=== PATIENT | female | born 1990 | race Hispanic/Latino ===

== ENCOUNTER 2018-01-31 05:48 | Inpatient (IN) | payer BC ==
[2018-01-31] MEDS ORDERED: METHYLERGONOVINE 0.2MG/ML AMP IM PRN (07:35)
[2018-01-31] MEDS ORDERED: BUTORPHANOL 1 MG/ML INJ IV PRN (07:35)
[2018-01-31] MEDS ORDERED: PROMETHAZINE 25 MG/ML VIAL IM PRN (07:35)
[2018-01-31] MEDS ORDERED: MEPERIDINE HCL 25 MG/0.5 ML IV PRN (07:35)
[2018-01-31] MEDS ORDERED: Ringers Lactate 1,000 ML IV PRN (07:35)
[2018-01-31] MEDS ORDERED: MIDAZOLAM HCL 2 MG/2 ML INJ IV PRN (07:35)
[2018-01-31 07:56] LABS: RPR Titer ND
[2018-01-31 07:57] VITALS: BMI 33.7
[2018-01-31 08:00] LABS: Urine Appearance TURBID; Urine Bilirubin NEGATIVE (NEG); Urine Blood 2+ (NEG); Urine Color YELLOW; Urine Glucose NEGATIVE (NEG); Urine Protein NEGATIVE (NEG); Urine Urobilinogen 0.2 mg/dL (0.2-1.0)
[2018-01-31] MEDS ORDERED: OXYTOCIN/LR 20 UNIT/1,000 ML BAG IV SCH (08:00)
[2018-01-31] MEDS ORDERED: Ringers Lactate 1,000 ML IV SCH (08:00)
[2018-01-31 08:01] LABS: Absolute Lymphocytes (CBC) 1.5 K/uL (0.7-4.9); Absolute Monocytes 0.8 K/uL (0.1-1.3); Absolute Neutrophil 11.4 K/uL (1.8-8.0); Basophils % 0.2 % (0-1.3); Eosinophils % 0.2 % (0-4.4); Hematocrit 37.4 % (36.0-45.0); MCH 30.9 pg (27.0-35.0); MCV 89.4 fL (80-100); MPV 9.5 fL (7.6-11.3); Monocytes % 5.9 % (3.3-12.3); RBC Red Blood Cell Count 4.19 M/uL (3.86-4.86)
[2018-01-31 08:17] LABS: Urine Microscopic Reflex ORDER UMIC
[2018-01-31 08:37] LABS: Urine Bacteria >50 /HPF (<20); Urine Culture Reflex Order NOT NEEDED
[2018-01-31] MEDS ORDERED: LIDOCAINE 2% INJ, 20 mL 20 ML ONE (10:46)
[2018-01-31] MEDS ORDERED: DOCUSATE NA/SENNA CONC 1 TAB PO PRN (11:24)
[2018-01-31] MEDS ORDERED: ACETAMINOPHEN 500 MG TAB PO PRN (11:24)
[2018-01-31] MEDS ORDERED: DIPHENHYDRAMINE 25 MG TAB/CAP PO PRN (11:24)
[2018-01-31] MEDS ORDERED: BISACODYL 10 MG RECTAL SUPP RECT PRN (11:24)
[2018-01-31] MEDS ORDERED: Oxycodone HCl/Acetaminophen 1 TAB TAB PO PRN ×2 (11:24)
[2018-01-31] MEDS ORDERED: Rho(D) IG (HUMAN) 300 MCG SYR IM PRN (11:41)
[2018-01-31] MEDS ORDERED: OXYTOCIN/LR 1,000 ML IV SCH (12:00)
--- NOTE | 2018-01-31 13:32 | PREOPHP ---
Date of Admission: 01/31/2018 A 27-year-old, primigravida, 39 weeks, has come in for the last 2 days with irregular contractions, c tripp in today in active labor, 3 cm, 70% effaced, vertex, -1 station, rupture of membranes, clear flui d. The patient has had 1 mg of Stadol. Beta strep is negative. She is Rh negative and has had RhoG AM during the . Labor talk given. Anticipate more rapid progress once the patient reaches 5 cm. She is having back discomfort, so I think the baby is probably occiput posterior, although, I cannot tell at this time. Pelvic rocks encouraged. WINNIE/WANDY Voice ID: [id number]
[2018-01-31] MEDS: IBUPROFEN 200 MG TAB PO PRN (14:26)
--- NOTE | 2018-01-31 16:14 | PN ---
The patient went from approximately 3 to 4 cm to complete, is now began to pushing, baby is in the pe rfect position. If she pushes well, it should not take as too much longer. She is on only 1 dose of Stadol during the labor. Doing well at this point with breathing techniques and encouragement from her family. WINNIE/WANDY Voice ID: [id number] Report ID: [id number]
[2018-01-31 19:18] LABS: RPR (Rapid Plasma Reagin) NON-REACT (NON-REACT)
--- NOTE | 2018-01-31 23:01 | OP ---
Surgeon: Antwan Gottlieb MD Indication And Procedure: A 27-year-old, primigravida, 39 weeks' gestation, had been seen previous 2 days with prodromal labor, came in today in active labor; 3 cm, 70% effaced, gregg every 2-3 m inutes; Rh negative, has received RhoGAM during the , immune to Rubella, negative beta strep screen. Rupture of membranes at 3 cm. Light Pitocin augmentation. The patient progressed rapidly to complete, used only 1 mg of Stadol, otherwise, Lamaze breathing techniques to best advantage. Sec ond stage of 20-30 minute, spontaneous vaginal delivery of an estimated 7 pounds, male , Apgars 9 and 9. First-degree laceration on the left side of the introitus, sutured with 2-0 chromic runnin g locked stitch under local infiltration. Wilkinson delivery of the placenta, which was inspected and noted to be intact and normal, less than 300 cc blood loss. The patient tolerated all procedures wel l. Final Diagnoses: Term intrauterine , 39 weeks; vaginal delivery, Rh negative, RhoGAM castro ZHOU/WANDY Voice ID: [id number] Report ID: [id number]
[2018-02-01] MEDS: IBUPROFEN 200 MG TAB PO PRN (00:59)
[2018-02-01 12:32] VITALS: BP 123/75; TEMP 96
--- NOTE | 2018-02-02 05:24 | DS ---
Date of Discharge: 02/01/2018 Hospital Course: A 27-year-old primigravida, at 39 weeks. Came in active labor. Subsequently aria ered an estimated 7 pounds male , Apgars 9 and 9, first-degree laceration repaired with 2-0 chr omic. Schultze delivery of the placenta. Estimated blood loss less than 300 cc. Placenta intact. Rh negative. Has received RhoGAM during the and has received RhoGAM in the courtney od. She has also had her Tdap shot already. No complaints or problems this morning. Full dismissal instructions. We will let her go home with tramadol, although she may take Motrin instead. Final Diagnoses: 1.Term intrauterine 39 weeks. 2.Vaginal delivery. 3.RhoGAM given, Tdap has been administered during the . WINNIE/WANDY Voice ID: [id number] Report ID: [id number]
[2018-02-03 04:14] LABS: HBsAG Nonreactive (Nonreactive)
== END 2018-02-01 13:50 | disposition home or self-care (01) | DRG 775 ==
LOC: L&D 05:48 → 2ND-WC 07:35
PROVIDERS: ADMIT Specialist; ATTEND Specialist
PROC: 10E0XZZ Delivery of Products of Conception, External Approach (ICD-10-PCS; principal; 2018-01-31)
PROC: 0HQ9XZZ Repair Perineum Skin, External Approach (ICD-10-PCS; 2018-01-31)
PROC: 10907ZC Drainage of Amniotic Fluid, Therapeutic from Products of Conception, Via Natural or Artificial Opening (ICD-10-PCS; 2018-01-31)
PROC: 3E0234Z Introduction of Serum, Toxoid and Vaccine into Muscle, Percutaneous Approach (ICD-10-PCS; 2018-01-31)
DX: O70.0 First degree perineal laceration during delivery (principal); O26.893 Other specified pregnancy related conditions, third trimester; Z3A.39 39 weeks gestation of pregnancy; Z37.0 Single live birth; Z67.41 Type O blood, Rh negative
CPT/HCPCS: 36415; 81003; 81015; 85025; 85461; 86592; 86850; 86901; 87340; 99218; J0595; J2175; J2210; J2550; J2590; J2790

== ENCOUNTER 2018-02-02 17:20 | Emergency (ER) | payer BC ==
[2018-02-02] MEDS ORDERED: NA CHLORIDE 0.9% 1,000 ML ONE (18:00)
[2018-02-02 18:10] LABS: Absolute Lymphocytes (CBC) 1.3 K/uL (0.7-4.9); Absolute Monocytes 0.8 K/uL (0.1-1.3); Absolute Neutrophil 10.2 K/uL (1.8-8.0); Basophils % 1.5 % (0-1.3); Eosinophils % 0.6 % (0-4.4); Hematocrit 32.2 % (36.0-45.0); Lymphocytes % 10.6 % (15.3-44.8); MCH 30.9 pg (27.0-35.0); MCV 91.3 fL (80-100); MPV 9.3 fL (7.6-11.3); Monocytes % 6.1 % (3.3-12.3); RBC Red Blood Cell Count 3.53 M/uL (3.86-4.86)
[2018-02-02 18:13] LABS: Potassium 3.7 mmol/L (3.5-5.1)
--- NOTE | 2018-02-02 19:10 | RAD REPORT ---
EXAM DESCRIPTION: CT - Head Brain Wo Cont - 02/02/2018 7:03 pm CLINICAL HISTORY: DIZZINESS Drowsiness COMPARISON: No comparisons TECHNIQUE: All CT scans are performed using dose optimization technique as appropriate and may inclu de automated exposure control or mA/KV adjustment according to patient size. FINDINGS: No intracranial hemorrhage, hydrocephalus or extra-axial fluid collection.No areas of brai n edema or evidence of midline shift. The paranasal sinuses and mastoids are clear. The calvarium is intact. IMPRESSION: No acute intracranial abnormality.
--- NOTE | 2018-02-02 19:44 | ER ---
Nurse's Notes [facility] Name: Gemini Gustafson Age: 27 yrs Sex: Female : 1990 Arrival Date: 02/02/2018 Time: 17:[address] Private MD: Diagnosis: mood disturbance;Sleep deprivation Presentation: 02/02 17:35 Presenting complaint: states: Shes just been randomly crying, and not acting sg normal. Today she said she didn't feel good, and hasnt been able to sleep because we have a new baby. Transition of care: patient was not received from another setting of care. Onset of symptoms was February 02, 2018. Risk Assessment: Do you want to hurt yourself or someone else? Patient reports no desire to harm self or others. Initial Sepsis Screen: Does the patient meet any 2 criteria? No. Patient's initial sepsis screen is negative. Does the patient have a suspected source of infection? No. Patient's initial sepsis screen is negative. Care prior to arrival: None. 17:35 Method Of Arrival: Ambulatory sg 17:35 Acuity: BEBE 3 sg 17:41 Presenting complaint: pt is sitting in wheel chair in lobby, tearful, then lays her ch head back in the wheel chair, arms and legs tremble equally, then pt sits up and looks around. pt does thsi several times. states she has been acting "off" for an hour. pt gave 01/31/18. Triage Assessment: 17:40 General: Appears in no apparent distress. uncomfortable, Behavior is uncooperative, pt ch is sitting in chair in lobby, shaking arms and legs, eyes rolling back in her head. pt will not talk. FLUE GAS ANALYST: 17:36 LMP N/A - Recent sg Historical: - Allergies: 17:40 No Known Allergies; ch - Home Meds: 17:40 None [Active]; ch - PMHx: 17:40 None; ch - PSHx: 17:40 None; ch - Immunization history:: Adult Immunizations up to date. - Social history:: Smoking status: Patient/guardian denies using tobacco. - Ebola Screening: : Patient negative for fever greater than or equal to 101.5 degrees Fahrenheit, and additional compatible Ebola Virus Disease symptoms Patient denies exposure to infectious person Patient denies travel to an Ebola-affected area in the 21 days before illness onset No symptoms or risks identified at this time. Screenin:30 Abuse screen: Denies threats or abuse. Denies injuries from another. Nutritional sg screening: No deficits noted. Tuberculosis screening: No symptoms or risk factors identified. Never had TB. Fall Risk None identified. Assessment: 17:30 General: Appears in no apparent distress. well groomed, well developed, well nourished, sg Behavior is cooperative, quiet. General: Behavior is crying. Pain: Denies pain. Neuro: Level of Consciousness is awake, alert, obeys commands, Oriented to person, place, time, Speech is normal, Facial symmetry appears normal. Cardiovascular: Heart tones S1 S2 present Capillary refill is sluggish in bilateral fingers Patient's skin is warm and dry. Chest pain is denied. Respiratory: Airway is patent Respiratory effort is even, unlabored, Respiratory pattern is regular, symmetrical. GI: No signs and/or symptoms were reported involving the gastrointestinal system. GI: Reports constipation, since four days. : Reports vaginal bleeding that is bright red, light flow, spotty, Denies pain urinary frequency, urgency. EENT: No signs and/or symptoms were reported regarding the EENT system. Derm: Skin is intact, is healthy with good turgor, Skin is dry, Skin is pale, Skin temperature is cool. Musculoskeletal: Circulation, motion, and sensation intact. Range of motion: intact in all extremities, Swelling absent Reports weakness in right leg and left leg. 18:41 Reassessment: Patient appears in no apparent distress at this time. Patient is alert, sg oriented x 3, equal unlabored respirations, skin warm/dry/pink. pt no longer crying, but reports feeling sad. pt aa\\T\\ox3 at this time, slow to respond, awaiting CT scan. Vital Signs: 17:36 BP 147 / 98; Pulse 81; Resp 19 S; Temp 97.9; Pulse Ox 99% on R/A; Pain 0/10; sg ED Course: 17:22 Patient arrived in ED. sb2 17:23 Viral Hernandez PA is PHCP. jr8 17:23 Santiago Alvarado MD is Attending Physician. jr8 17:31 Inserted saline lock: 20 gauge in left antecubital area, using aseptic technique. Blood aj collected. 17:35 Patient has correct armband on for positive identification. Placed in gown. Bed in low sg position. Side rails up X2. attractions associate on. Pulse ox on. NIBP on. Warm blanket given. Head of bed elevated. 17:36 Triage completed. sg 17:36 Arm band placed on. sg 17:40 Patient placed in an exam room, on a stretcher. 17:52 Justino Martinez, RN is Primary Nurse. sg 18:03 EKG done, by scheme technician. reviewed by Viral LAWSON. 3 18:30 No provider procedures requiring assistance completed. sg 18:[address] cw1 19:03 CT Head Brain wo Cont In Process Unspecified. EDMS 19:03 CT completed. Patient tolerated procedure well. Patient moved back from CT. jg6 19:56 IV discontinued, intact, bleeding controlled, No redness/swelling at site. Pressure ak1 dressing applied. Administered Medications: 18:00 Drug: NS 0.9% 1000 ml Route: IV; Rate: 1000 ml; Site: left antecubital; sg 19:47 Follow up: IV Status: Completed infusion ak1 Point of Care Testing: Blood Glucose: 17:40 Blood Glucose: 99 mg/dL; sg Ranges: Outcome: 19:44 Discharge ordered by . jrDamaris 19:47 Discharged to home ambulatory, with family. ak1 19:47 Condition: stable 19:56 Discharge instructions given to patient, family, Instructed on discharge instructions, ak1 follow up and referral plans. Demonstrated understanding of instructions, follow-up care. 19:57 Patient left the ED. ak1 Signatures: Dispatcher [employer] EDFlores Powers, RN Justino Velasquez ch, RN Jyothi Jacobs RN Afsaneh Sharpe cw1 Viral Hernandez PA PA jrKetty Umana RN RN Erinn Frederick Shakira 3 Ro Romero j6
--- NOTE | 2018-02-02 19:44 | EDPHYS ---
Physician Documentation [facility] Name: Gemini Gustafson Age: 27 yrs Sex: Female : 1990 Arrival Date: 02/02/2018 Time: 17:[address] Private MD: ED Physician Santiago Alvarado HPI: 02/02 18:30 This 27 yrs old Female presents to ER via Ambulatory with complaints of jr8 Weakness. 18:30 Patient stated that she has hardly slept in the past day or so. Stated that she jr8 delivered her child two days ago. Stated that the child has been fine but that she cannot sleep because she is worried about him. Stated that she wakes up and checks on him about 15-20 times a night. stated that she randomly cries and is now feeling week . Severity of symptoms: At their worst the symptoms were moderate in the emergency department the symptoms are unchanged. The patient has not experienced similar symptoms in the past. The patient has not recently seen a physician. HEAD BONE GRINDER: 17:36 LMP N/A - Recent sg Historical: - Allergies: 17:40 No Known Allergies; ch - Home Meds: 17:40 None [Active]; ch - PMHx: 17:40 None; ch - PSHx: 17:40 None; ch - Immunization history:: Adult Immunizations up to date. - Social history:: Smoking status: Patient/guardian denies using tobacco. - Ebola Screening: : Patient negative for fever greater than or equal to 101.5 degrees Fahrenheit, and additional compatible Ebola Virus Disease symptoms Patient denies exposure to infectious person Patient denies travel to an Ebola-affected area in the 21 days before illness onset No symptoms or risks identified at this time. ROS: 18:30 Eyes: Negative for injury, pain, redness, and discharge, ENT: Negative for injury, jr8 pain, and discharge, Neck: Negative for injury, pain, and swelling, Cardiovascular: Negative for chest pain, palpitations, and edema, Respiratory: Negative for shortness of breath, cough, wheezing, and pleuritic chest pain, Abdomen/GI: Negative for abdominal pain, nausea, vomiting, diarrhea, and constipation, Back: Negative for injury and pain, MS/Extremity: Negative for injury and deformity, Skin: Negative for injury, rash, and discoloration. 18:30 Neuro: Negative for headache, weakness, numbness, tingling, and seizure. 18:30 Constitutional: Positive for fatigue, malaise. Exam: 18:30 Eyes: Pupils equal round and reactive to light, extra-ocular motions intact. Lids and jr8 lashes normal. Conjunctiva and sclera are non-icteric and not injected. Cornea within normal limits. Periorbital areas with no swelling, redness, or edema. ENT: Nares patent. No nasal discharge, no septal abnormalities noted. Tympanic membranes are normal and external auditory canals are clear. Oropharynx with no redness, swelling, or masses, exudates, or evidence of obstruction, uvula midline. Mucous membranes moist. Neck: Trachea midline, no thyromegaly or masses palpated, and no cervical lymphadenopathy. Supple, full range of motion without nuchal rigidity, or vertebral point tenderness. No Meningismus. Cardiovascular: Regular rate and rhythm with a normal S1 and S2. No gallops, murmurs, or rubs. Normal PMI, no JVD. No pulse deficits. Respiratory: Lungs have equal breath sounds bilaterally, clear to auscultation and percussion. No rales, rhonchi or wheezes noted. No increased work of breathing, no retractions or nasal flaring. Abdomen/GI: Soft, non-tender, with normal bowel sounds. No distension or tympany. No guarding or rebound. No evidence of tenderness throughout. Back: No spinal tenderness. No costovertebral tenderness. Full range of motion. Skin: Warm, dry with normal turgor. Normal color with no rashes, no lesions, and no evidence of cellulitis. MS/ Extremity: Pulses equal, no cyanosis. Neurovascular intact. Full, normal range of motion. Neuro: Awake and alert, GCS 15, oriented to person, place, time, and situation. Cranial nerves II-XII grossly intact. Motor strength 5/5 in all extremities. Sensory grossly intact. Cerebellar exam normal. Normal gait. 18:30 Constitutional: The patient appears alert, awake, anxious, restless. 19:43 ECG was reviewed by the Attending Physician. jr8 Vital Signs: 17:36 BP 147 / 98; Pulse 81; Resp 19 S; Temp 97.9; Pulse Ox 99% on R/A; Pain 0/10; sg MDM: 17:23 Patient medically screened. jr8 19:42 Data reviewed: vital signs, nurses notes, lab test result(s), EKG, radiologic studies, jr8 CT scan, and as a result, I will discharge patient. Data interpreted: Pulse oximetry: on room air is 99 %. Interpretation: normal. Counseling: I had a detailed discussion with the patient and/or guardian regarding: the historical points, exam findings, and any diagnostic results supporting the discharge/admit diagnosis, lab results, radiology results, the need for outpatient follow up, an OB/Gyne specialist, to return to the emergency department if symptoms worsen or persist or if there are any questions or concerns that arise at home. Response to treatment: the patient's symptoms have markedly improved after treatment, patient is well hydrated. 02/02 17:23 Order name: CBC with Diff; Complete Time: 18:30 8 02/02 17:23 Order name: Basic Metabolic Panel; Complete Time: 18:13 8 02/02 17:34 Order name: Magnesium; Complete Time: 18:13 [facility] 02/02 18:38 Order name: CT Head Brain wo Cont; Complete Time: 19:28 8 02/02 17:23 Order name: IV - Large Bore; Complete Time: 17:41 8 02/02 17:35 Order name: EKG - Nurse/Tech; Complete Time: 18:13 8 02/02 17:35 Order name: EKG; Complete Time: 17:35 jr8 EC:43 Rate is 75 beats/min. Rhythm is regular, Normal Sinus Rhythm. QRS [place] is Normal. [place] jr8 interval is normal at 130 msec. QRS interval is normal at 78 msec. QT interval is normal at 431 msec. No Q waves. T waves are Normal. No ST changes noted. Clinical impression: Normal ECG. Interpreted by me. Reviewed by me. Administered Medications: 18:00 Drug: NS 0.9% 1000 ml Route: IV; Rate: 1000 ml; Site: left antecubital; sg 19:47 Follow up: IV Status: Completed infusion ak1 Point of Care Testing: Blood Glucose: 17:40 Blood Glucose: 99 mg/dL; sg Ranges: Critical Glucose Levels:Adult <50 mg/dl or >400 mg/dl <40 mg/dl or >180 mg/dl Disposition: 02/03 06:31 Co-signature as Attending Physician, Santiago Alvarado MD I agree with the assessment and deniz plan of care. Disposition: 02/02/18 19:44 Discharged to Home. Impression: mood disturbance, Sleep deprivation. - Condition is Stable. - Discharge Instructions: Depression and Baby Blues. - Medication Reconciliation Form, Thank You Letter, Antibiotic Education, Prescription Opioid Use form. - Follow up: Private Physician; When: 1 - 2 days; Reason: Recheck today's complaints, Continuance of care, Re-evaluation by your physician. - Problem is new. - Symptoms have improved. Signatures: Dispatcher [employer] [facility] Flores Woo, RN RN Justino Kelley RN RN Santiago Flores MD MD cha Roszak, Josh, PA LULU jr8 Ketty Olsen RN RN ak1 Corrections: (The following items were deleted from the chart) 02/02 18:40 17:24 TYPE AND SCREEN+[id number].LAB.BRZ ordered. [facility] 19:57 19:44 02/02/2018 19:44 Discharged to Home. Impression: mood disturbance; ak1 Sleep deprivation. Condition is Stable. Forms are Medication Reconciliation Form, Thank You Letter, Antibiotic Education, Prescription Opioid Use. Follow up: Private Physician; When: 1 - 2 days; Reason: Recheck today's complaints, Continuance of care, Re-evaluation by your physician. Problem is new. Symptoms have improved. jr8
[2018-02-02 20:08] VITALS: BP 147/98; TEMP 97.9; O2SAT 99
--- NOTE | 2018-02-03 16:19 | EKG ---
Test Date: 2018-02-02 Test Time: 17:43:35 Plant Packer: GERTRUDE MEASUREMENT RESULTS: Intervals: Rate: 75 WA: 130 QRSD: 78 QT: 386 QTc: 431 [place]: P: 41 WA: 130 QRS: 12 T: 4 INTERPRETIVE STATEMENTS: Normal sinus rhythm Normal ECG Compared to ECG 11/05/2016 20:10:22 No significant changes Electronically Signed On 02-03-18 16:14:50 CDT by Chris Bautista
== END 2018-02-02 19:57 | disposition home or self-care (01) ==
LOC: ER 17:20
DX: O90.6 Postpartum mood disturbance (principal); Z72.820 Sleep deprivation
CPT/HCPCS: 36415; 70450; 80048; 82962; 83735; 85025; 93005; 96360; 96361; 99285; J7030

== ENCOUNTER 2018-07-02 16:10 | Emergency (ER) | payer BC ==
[2018-07-02] MEDS ORDERED: ONDANSETRON 4 MG (ODT) TAB ONE (16:37)
[2018-07-02] MEDS ORDERED: ACETAMINOPHEN 500 MG TAB ONE (16:37)
--- NOTE | 2018-07-02 17:42 | ER ---
Nurse's Notes [facility] Name: Gemini Gustafson Age: 28 yrs Sex: Female : 1990 Arrival Date: 07/02/2018 Time: 16:13 Bed 23 Private MD: Antwan Gottlieb B Diagnosis: Influenza due to identified novel influenza A virus with other respiratory manifestations Presentation: 07/02 16:14 Presenting complaint: Patient states: bilateral temporal and occipital headache started sv 3 days ago, SOB, sore throat. Seen by her PCP and sent home with prescriptions. Transition of care: patient was not received from another setting of care. Onset of symptoms was June 2018. Care prior to arrival: None. 16:14 Method Of Arrival: Ambulatory sv 16:14 Acuity: BEBE 3 sv 16:19 Note Pt reported being 11 weeks . sv 16:33 Risk Assessment: Do you want to hurt yourself or someone else? Patient reports no mg2 desire to harm self or others. Initial Sepsis Screen: Does the patient meet any 2 criteria? No. Patient's initial sepsis screen is negative. Does the patient have a suspected source of infection? No. Patient's initial sepsis screen is negative. Triage Assessment: 16:32 Headache History: The patient has had previous headaches and this one is similar to mg2 previous episodes. General: Appears in no apparent distress. comfortable, Behavior is calm, cooperative. Pain: Also complains of no other associated symptoms. Pain: Complains of pain in head and throat. CHECK GRADER: 17:54 LMP unknown mg2 Historical: - Allergies: 16:17 No Known Allergies; sv - PMHx: 16:17 None; sv - PSHx: 16:17 None; sv - Immunization history:: Adult Immunizations up to date. - Social history:: Smoking status: Patient/guardian denies using tobacco. - Ebola Screening: : No symptoms or risks identified at this time. Screenin:31 Abuse screen: Denies threats or abuse. Denies injuries from another. Nutritional mg2 screening: No deficits noted. Tuberculosis screening: No symptoms or risk factors identified. Fall Risk None identified. Assessment: 16:30 General: Appears in no apparent distress. comfortable, Behavior is calm, cooperative. mg2 Pain: Complains of pain in head and throat Pain does not radiate. Pain currently is 4 out of 10 on a pain scale. Quality of pain is described as aching, Pain began gradually, Is intermittent. Neuro: Level of Consciousness is awake, alert, obeys commands, Oriented to person, place, time, situation. Cardiovascular: Capillary refill < 3 seconds Patient's skin is warm and dry. Respiratory: Reports cough that is productive, runny nose Airway is patent Respiratory effort is even, unlabored, Respiratory pattern is regular, symmetrical. GI: Reports vomiting. : No signs and/or symptoms were reported regarding the genitourinary system. EENT: No signs and/or symptoms were reported regarding the EENT system. EENT: Reports pain in throat. Derm: Skin is intact, is healthy with good turgor, Skin is pink, warm \T\ dry. normal. Musculoskeletal: Circulation, motion, and sensation intact. Capillary refill < 3 seconds. 17:35 Reassessment: Patient appears in no apparent distress at this time. Patient and/or mg2 family updated on plan of care and expected duration. Pain level reassessed. Patient is alert, oriented x 3, equal unlabored respirations, skin warm/dry/pink. Vital Signs: 16:17 BP 121 / 93; Pulse 116; Resp 22; Temp 100; Pulse Ox 100% ; Weight 86.18 kg; Height 5 sv ft. 6 in. (167.64 cm); Pain 10/10; 17:34 BP 111 / 73; Pulse 95; Resp 18; Temp 99.8(O); Pulse Ox 98% on R/A; Pain 0/10; mg2 16:17 Body Mass Index 30.67 (86.18 kg, 167.64 cm) sv Vitals: 17:35 Heart Tones 180. mg2 ED Course: 16:13 Patient arrived in ED. sb2 16:14 Antwan Gottlieb MD is Private Physician. sb2 16:16 Triage completed. sv 16:17 Arm band placed on. sv 16:18 Santiago Mann PA is PHCP. cp 16:18 Nilda Horton MD is Attending Physician. cp 16:18 Sadi Dow RN is Primary Nurse. mg2 16:31 No provider procedures requiring assistance completed. Patient did not have IV access mg2 during this emergency room visit. 16:33 Patient has correct armband on for positive identification. school bus monitor on. Pulse mg2 ox on. NIBP on. Door closed. Administered Medications: 16:29 Drug: Zofran 4 mg Route: PO; mg2 17:34 Follow up: Response: No adverse reaction; Marked relief of symptoms mg2 16:29 Drug: Tylenol 1000 mg Route: PO; mg2 17:34 Follow up: Response: No adverse reaction; Marked relief of symptoms mg2 Outcome: 17:42 Discharge ordered by . dakota 17:53 Discharged to home ambulatory, with family. mg2 17:53 Condition: good 17:53 Discharge instructions given to patient, family, Instructed on discharge instructions, follow up and referral plans. medication usage, Demonstrated understanding of instructions, follow-up care, medications, Prescriptions given X 2. 17:54 Patient left the ED. mg2 Signatures: Claudia Hurley, RN RN sv Santiago Mann, Erinn Mar cp sb2 Sadi Dow, RN RN mg2
--- NOTE | 2018-07-02 17:42 | EDPHYS ---
Physician Documentation [facility] Name: Gemini Gustafson Age: 28 yrs Sex: Female : 1990 Arrival Date: 07/02/2018 Time: 16:13 Bed 23 Private MD: Antwan Gottlieb B ED Physician Nilda Horton HPI: 07/02 16:25 This 28 yrs old Female presents to ER via Ambulatory with complaints of cp Headache, Sore Throat. 16:25 The patient or guardian reports cough, flu symptoms, low-grade fever, myalgias. cp 16:25 Onset: The symptoms/episode began/occurred 3 day(s) ago. Associated signs and symptoms: cp Pertinent positives: fever, rhinorrhea, sore throat, headache, cough, Pertinent negatives: diarrhea, vomiting. 16:25 Severity of symptoms: in the emergency department the symptoms are unchanged despite cp home interventions. The patient has been recently seen by a physician: an psychotherapist specialist, with similar presenting complaints, was given a prescription for antibiotics. 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 - Social history:: Smoking status: Patient/guardian denies using tobacco. - Ebola Screening: : No symptoms or risks identified at this time. ROS: 16:30 Constitutional: Positive for body aches, low grade fever, Negative for poor PO intake. cp 16:30 Eyes: Negative for injury, pain, redness, and discharge. cp 16:30 ENT: Positive for rhinorrhea, sore throat, Negative for drainage from ear(s), ear pain, difficulty swallowing, difficulty handling secretions. 16:30 Respiratory: Positive for cough, Negative for shortness of breath, wheezing. 16:30 Abdomen/GI: Negative for abdominal pain, vomiting, diarrhea, constipation. 16:30 : Negative for urinary symptoms. 16:30 Skin: Negative for cellulitis, rash. 16:30 Neuro: Positive for headache, Negative for altered mental status, weakness. 16:30 All other systems are negative. Exam: 16:35 Constitutional: The patient appears in no acute distress, alert, awake, non-toxic, well cp developed, well nourished. 16:35 Head/Face: Normocephalic, atraumatic. cp 16:35 Eyes: Periorbital structures: appear normal, Pupils: equal, round, and reactive to cp light and accomodation, Extraocular movements: intact throughout, Conjunctiva: normal, no exudate, no injection, Sclera: no appreciated abnormality, Lids and lashes: appear normal, bilaterally. 16:35 ENT: External ear(s): are unremarkable, Ear canal(s): are normal, clear, TM's: bulging, is not appreciated, bilaterally, dullness, bilaterally, erythema, is not appreciated, bilaterally, Nose: nasal drainage, that is clear, Mouth: Lips: moist, Oral mucosa: moist, Posterior pharynx: Airway: no evidence of obstruction, patent, Tonsils: with erythema, no enlargement, no exudate, swelling, is not appreciated, erythema, that is mild, exudate, is not appreciated. 16:35 Neck: ROM/movement: is normal, is supple, without pain, no range of motions limitations, no meningismus, no nuchal rigidity, Lymph nodes: no appreciated lymphadenopathy. 16:35 Chest/axilla: Inspection: normal, Palpation: is normal, no crepitus, no tenderness. 16:35 Cardiovascular: Rate: tachycardic, Rhythm: regular. 16:35 Respiratory: the patient does not display signs of respiratory distress, Respirations: normal, no use of accessory muscles, no retractions, no splinting, no tachypnea, Breath sounds: are clear throughout, no decreased breath sounds, no stridor, no wheezing. 16:35 Abdomen/GI: Inspection: abdomen appears normal. 16:35 Skin: cellulitis, is not appreciated, no rash present. 16:35 Neuro: Orientation: to person, place \T\ time. Mentation: is normal, Cerebellar function: is grossly normal, Motor: moves all fours, strength is normal, Sensation: is normal, Gait: is steady. Vital Signs: 16:17 BP 121 / 93; Pulse 116; Resp 22; Temp 100; Pulse Ox 100% ; Weight 86.18 kg; Height 5 sv ft. 6 in. (167.64 cm); Pain 10/10; 17:34 BP 111 / 73; Pulse 95; Resp 18; Temp 99.8(O); Pulse Ox 98% on R/A; Pain 0/10; mg2 16:17 Body Mass Index 30.67 (86.18 kg, 167.64 cm) sv MDM: 16:19 Patient medically screened. cp 16:30 Differential diagnosis: bronchitis, flu, strep throat. cp 17:40 Data reviewed: vital signs, nurses notes, lab test result(s), and as a result, I will cp discharge patient. Counseling: I had a detailed discussion with the patient and/or guardian regarding: the historical points, exam findings, and any diagnostic results supporting the discharge/admit diagnosis, lab results, to return to the emergency department if symptoms worsen or persist or if there are any questions or concerns that arise at home. Response to treatment: the patient's symptoms have mildly improved after treatment, and as a result, I will discharge patient. 17:40 Antibiotic administration: Not indicated, the patient has a suspected viral illness. 07/02 16:24 Order name: Influenza Screen (a \T\ B) 07/02 16:24 Order name: Strep 07/02 16:24 [place] [facility] [place] 16:24 Order name: [place] [facility] [place]/02 17:07 Order name: Influenza Screen (A ; Complete Time: 17:12 EDMS 07/02 17:13 Interpretation: Normal except: FLUA FLU A ----- \T\nbsp; \T\nbsp; \T\nbsp; \T\nbsp; \T\nbsp; cp \T\nbsp; \T\nbsp; \T\nbsp; \T\nbsp; POSITIVE for FLU A protein antigen. 07/02 17:08 Order name: Group A Streptococcus Rapid Sc; Complete Time: 17:12 EDMS 07/02 17:13 Interpretation: Reviewed. 07/02 17:13 Order name: FHT's; Complete Time: 17:33 cp Administered Medications: 16:29 Drug: Zofran 4 mg Route: PO; mg2 17:34 Follow up: Response: No adverse reaction; Marked relief of symptoms mg2 16:29 Drug: Tylenol 1000 mg Route: PO; mg2 17:34 Follow up: Response: No adverse reaction; Marked relief of symptoms mg2 Disposition: 07/02/18 17:42 Discharged to Home. Impression: Influenza due to identified novel influenza A virus with other respiratory manifestations. - Condition is Stable. - Discharge Instructions: Influenza, Adult. - Prescriptions for promethazine 25 mg Oral Tablet - take 1 tablet by ORAL route every 6 hours As needed; 15 tablet. Tamiflu 75 mg Oral Capsule - take 1 tablet by ORAL route every 12 hours for 5 days; 10 tablet. - Medication Reconciliation Form, Thank You Letter, Antibiotic Education, Prescription Opioid Use form. - Follow up: Private Physician; When: 2 - 3 days; Reason: Recheck today's complaints. - Problem is new. - Symptoms have improved. Addendum: 07/05/2018 07:05 Co-signature as Attending Physician, Nilda Horton MD. m a2 Signatures: Dispatcher [employer] Claudia Rodriguez RN RN sv Santiago Mann PA PA dakota Horton, MD JAIRO Munguia ma2 Sadi Dow RN RN mg2 Corrections: (The following items were deleted from the chart) 07/02 17:07/01 16:35 Constitutional: The patient appears in no acute distress, alert, awake, cp non-toxic, well developed, well nourished, cp 07/02 17:07/01 16:35 Head/Face: Normocephalic, atraumatic. cp cp 07/02 16:07/01 16:35 Eyes: Periorbital structures: appear normal, Conjunctiva: normal, no cp exudate, no injection, Sclera: no appreciated abnormality, Lids and lashes: appear normal, bilaterally, cp 07/02 17:07/01 16:35 ENT: External ear(s): are unremarkable, Ear canal(s): are normal, clear, cp TM's: bulging, is not appreciated, bilaterally, dullness, bilaterally, erythema, is not appreciated, bilaterally, Nose: nasal drainage, that is clear, Mouth: Lips: moist, Oral mucosa: moist, Posterior pharynx: Airway: no evidence of obstruction, patent, Tonsils: with erythema, no enlargement, no exudate, Uvula: midline, swelling, is not appreciated, erythema, that is mild, exudate, is not appreciated, cp 07/02 16:07/01 16:35 Neck: ROM/movement: is normal, is supple, without pain, no range of motions cp limitations, no meningismus, no nuchal rigidity, Lymph nodes: no appreciated lymphadenopathy, cp 07/02 16:07/01 16:35 Chest/axilla: Inspection: normal, Palpation: is normal, no crepitus, no cp tenderness, cp 07/02 16:07/01 16:35 Cardiovascular: Rate: tachycardic, Rhythm: regular, cp cp 07/02 16:07/01 16:35 Respiratory: the patient does not display signs of respiratory distress, cp Respirations: normal, no use of accessory muscles, no retractions, no splinting, no tachypnea, labored breathing, is not present, Breath sounds: decreased breath sounds, are not appreciated, rhonchi, are not appreciated, stridor, is not appreciated, + upper airway congestion. wheezing: is not appreciated, cp 07/02 16:07/01 16:35 Abdomen/GI: Inspection: abdomen appears normal, Palpation: abdomen is soft cp and non-tender, in all quadrants, cp 07/02 16:07/01 16:35 Skin: cellulitis, is not appreciated, no rash present. cp 07/02 17:54 17:42 07/02/2018 17:42 Discharged to Home. Impression: Influenza due to identified mg2 novel influenza A virus with other respiratory manifestations. Condition is Stable. Forms are Medication Reconciliation Form, Thank You Letter, Antibiotic Education, Prescription Opioid Use. Follow up: Private Physician; When: 2 - 3 days; Reason: Recheck today's complaints. Problem is new. Symptoms have improved. cp
[2018-07-02 18:15] VITALS: BP 111/73; TEMP 99.8; O2SAT 98
== END 2018-07-02 17:54 | disposition home or self-care (01) ==
LOC: ER 16:10
DX: J10.1 Influenza due to other identified influenza virus with other respiratory manifestations (principal)
CPT/HCPCS: 87070; 87081; 87804; 99284

== ENCOUNTER 2019-01-10 01:05 | Inpatient (IN) | payer BC ==
[2019-01-10] MEDS ORDERED: Ringers Lactate 1,000 ML IV PRN (04:08)
[2019-01-10 04:50] VITALS: BMI 36.6
[2019-01-10 04:50] LABS: Urine Appearance CLEAR; Urine Bilirubin NEGATIVE (NEG); Urine Blood TRACE (NEG); Urine Color YELLOW; Urine Glucose NEGATIVE (NEG); Urine Protein NEGATIVE (NEG); Urine Specific Gravity 1.025 (1.005-1.030); Urine Urobilinogen 0.2 mg/dL (0.2-1.0)
[2019-01-10 04:52] LABS: Urine Microscopic Reflex ORDER UMIC
[2019-01-10 04:53] LABS: Absolute Lymphocytes (CBC) 1.6 K/uL (0.7-4.9); Basophils % 0.5 % (0-1.3); Hematocrit 36.3 % (36.0-45.0); Lymphocytes % 13.8 % (15.3-44.8); MPV 9.2 fL (7.6-11.3)
[2019-01-10] MEDS ORDERED: Ringers Lactate 1,000 ML IV SCH (05:00)
[2019-01-10] MEDS ORDERED: OXYTOCIN/LR 20 UNIT/1,000 ML BAG IV SCH ×2 (05:00→11:00)
[2019-01-10 05:14] LABS: Urine Culture Reflex Order REFLEXED
[2019-01-10 05:15] LABS: Urine Bacteria 20-50 /HPF (<20); Urine RBC <5 /HPF (NONE SEEN)
[2019-01-10] MEDS ORDERED: BUTORPHANOL 1 MG/ML INJ ONE (07:55)
[2019-01-10] MEDS ORDERED: PROMETHAZINE 25 MG/ML VIAL ONE (07:55)
[2019-01-10] MEDS ORDERED: METHYLERGONOVINE 0.2MG/ML AMP IM ONE (09:15)
[2019-01-10] MEDS ORDERED: CARBOPROST TROME 250 MCG/ML IM ONE (09:15)
[2019-01-10] MEDS ORDERED: LIDOCAINE 1% MPF 30 ML VIAL ONE (09:15)
[2019-01-10] MEDS ORDERED: Oxycodone HCl/Acetaminophen 1 TAB TAB PO PRN ×2 (10:09)
[2019-01-10] MEDS ORDERED: ACETAMINOPHEN 500 MG TAB PO PRN (10:09)
[2019-01-10] MEDS ORDERED: BISACODYL 10 MG RECTAL SUPP RECT PRN (10:09)
[2019-01-10] MEDS ORDERED: DOCUSATE NA/SENNA CONC 1 TAB PO PRN (10:09)
[2019-01-10] MEDS ORDERED: DIPHENHYDRAMINE 25 MG TAB/CAP PO PRN (10:09)
--- NOTE | 2019-01-10 15:52 | PREOPHP ---
Date of Admission: 01/10/2019 This 28-year-old 2, para 1, 39 weeks' today, Rh negative, has received RhoGAM during the preg alanis. Immune to Rubella. Negative beta strep screen. The patient is 3.5 to 4, 60% effaced, vertex , -1 station. Rupture of membranes, clear fluid. Brittny regularly. The patient went natural w ith her first delivery. States she is going to do the same thing this time. Full labor talk given. Anticipate delivery sometime later today. WINNIE/WANDY Voice ID: [id number]
--- NOTE | 2019-01-10 15:55 | PN ---
The patient is gregg regularly. She is now 5 cm, 90% effaced, vertex, -1 station, well applied . Clear fluid. Requesting epidural. She is being hydrated at this point and anesthesia has been no tified. WINNIE/WANDY Voice ID: [id number] Report ID: [id number]
--- NOTE | 2019-01-10 15:58 | PN ---
Patient is now 9 to 9.5, + 1 station. The baby has not rotated yet. We tried to get her to push pas t the cervical lip but she does not seem to be able to do it. Pitocin was discontinued, now has been restarted at 2 milliunits only. Baby looks much better. We will wait until the baby comes down to the point where she feels the urge to push and then begin pushing again. WINNIE/WANDY Voice ID: [id number] Report ID: [id number]
[2019-01-10] MEDS: IBUPROFEN 200 MG TAB PO PRN (18:33)
[2019-01-10] MEDS ORDERED: Ringers Lactate 2,000 ML IV ONE (19:46)
[2019-01-10 20:56] LABS: RPR (Rapid Plasma Reagin) NON-REACT (NON-REACT)
[2019-01-11] MEDS: IBUPROFEN 200 MG TAB PO PRN (03:13)
--- NOTE | 2019-01-11 07:58 | OP ---
Surgeon: Antwan Gottlieb MD This is a 28-year-old, 2, para 1 at 39 weeks gestation, 3-1/2 to 4 cm on admission. Rupture of membranes, clear fluid. During the first stage of labor, patient received Stadol IV 1 mg, Phenerg an 25 mg IM. Otherwise, used Lamaze breathing techniques to best advantage. Showed what appeared to possibly be late decelerations when she reached 6 cm, Pitocin was discontinued and baby looked much better thereafter. Baby was occiput posterior, but patient pushed 1 time and the baby rotated into a n anterior position and delivered Apgars 9 and 9 or even 9 and 10. Very small first-degree laceratio n above the urethra 1 [id number] stitch 3-0 chromic after local infiltration. Simmons delivery o f the placenta, which was inspected and noted to be intact and normal. A 300 cc or less blood loss. Patient tolerated all procedures well. She is Rh negative. Received RhoGAM during the . Immune to Rubella. Negative beta strep screen. Final Diagnoses: Term intrauterine 39 weeks. Vaginal delivery. WINNIE/WANDY Voice ID: [id number] Report ID: [id number]
--- NOTE | 2019-01-11 08:22 | PN ---
Subjective: The patient is now 8 cm, but the baby is still about 0 station. FHTs are good. She has had 1 mg of Stadol. I think the baby is posterior. As soon as it rotates, I think it will go quick ly. WINNIE/WANDY Voice ID: [id number] Report ID: [id number]
[2019-01-11 08:39] VITALS: BP 108/60; TEMP 97.6
--- NOTE | 2019-01-12 05:09 | DS ---
Date of Discharge: 01/11/2019 Hospital Course: A 28-year-old 2, para 1 at 39 weeks delivered a 7-pound 1-ounce female, Apg ars 9 and 9. No episiotomy. Very small first degree laceration just above the urethra sutured with 1 [id number] stitch 3-0 chromic. Schultze delivery of the placenta. Estimated blood loss less than 300 cc. Rh negative. Has received RhoGAM in the period. Afebrile, ambulating, void ing. Lochia is normal. Rubella immune. Beta strep negative. Dismissed with tramadol for analgesia , although she may elect to take Motrin instead. To see me in my office in 6 weeks. To report any f ever, temperature of 100 degrees, severe pain, heavy bleeding, or any other type of abnormalities. Final Diagnosis: Term intrauterine at 39 weeks, vaginal delivery. WINNIE/WANDY Voice ID: [id number] Report ID: [id number]
[2019-01-13 03:19] LABS: HBsAG Nonreactive (Nonreactive)
== END 2019-01-11 12:30 | disposition home or self-care (01) | DRG 807 ==
LOC: 2ND-WC 04:02
PROVIDERS: ADMIT Specialist; ATTEND Specialist
PROC: 10E0XZZ Delivery of Products of Conception, External Approach (ICD-10-PCS; principal; 2019-01-10)
PROC: 0HQ9XZZ Repair Perineum Skin, External Approach (ICD-10-PCS; 2019-01-10)
DX: O70.0 First degree perineal laceration during delivery (principal); Z37.0 Single live birth; Z3A.39 39 weeks gestation of pregnancy; O76 Abnormality in fetal heart rate and rhythm complicating labor and delivery; O26.893 Other specified pregnancy related conditions, third trimester; Z67.91 Unspecified blood type, Rh negative
CPT/HCPCS: 36415; 81003; 81015; 85025; 85461; 86592; 86850; 86870; 86901; 87086; 87088; 87340; J0595; J2210; J2550; J2590; J2790